=== PATIENT | female | born 1975 | race African-American/Black ===

== ENCOUNTER 2019-01-10 22:29 | Emergency (ER) | payer SELFPAY ==
[~2019-01-10] VITALS: Ht 182.9 cm; Wt 68.0 kg
[2019-01-10 22:40] VITALS: BP 130/82
== END 2019-01-10 23:17 | disposition left against medical advice (07) ==
LOC: ER 22:29
DX: M79.10 Myalgia, unspecified site (principal); Z53.21 Procedure and treatment not carried out due to patient leaving prior to being seen by health care provider